=== PATIENT | female | born 1985 | race Caucasian/White ===

== ENCOUNTER 2018-02-16 14:00 | Inpatient (IN) | payer BC ==
[2018-02-16] VITALS (9 sets, daily range): BP systolic 108–129; BP diastolic 50–76
[~2018-02-16] VITALS: Ht 157.5 cm; Wt 95.7 kg
--- NOTE | ~2018-02-16 | CON ---
[place], [place] REPORT OF CONSULTATION [id number] UN[facility] #: [id number] ROOM: 401 DOCTOR: KURTIS TOMAS MD BIRTHDATE: [birth year] DOS: 02/16/2018 GASTROENDOSCOPIC REPORT HISTORY OF PRESENT ILLNESS: A 32-year-old patient who presented to the Emergency Room with chief complaint of abdominal pain this morning and more severe than usual, radiation of pain to the back associated with nausea. She has not been eating anything since last night. I was called by the Emergency Room with her report of lipase up to [address] scan of the abdomen and pelvis, which is intrahepatic and extrahepatic biliary dilation with about 1 cm calcific stone in the distal common bile duct, which is most likely the cause of her gallstone pancreatitis. The patient has had cholecystectomy in the past. Her Main organs including spleen, liver, pancreas, adrenal glands and left kidney, all has been evaluated within normal limits. Urinary evaluation, possible UTI as well was with active urine suspected. Her white blood cell was 14,000, H and H of 14 and 43. Lactic acid baseline within normal limits. Comprehensive metabolic panel, electrolyte balanced, GFR greater than 60. LFTs, bilirubin of 2.1, GOT and GPT of 360 and 390 respectively. Alkaline phosphatase 340. PAST MEDICAL HISTORY: Essentially unremarkable. PAST SURGICAL HISTORY: Cholecystectomy in the past, laparoscopically. ALLERGIES: No known medication. SOCIAL HISTORY: Nonsmoker, nonalcohol consumer. MEDICATIONS: Medication at home is none. FAMILY HISTORY: Noncontributory. REVIEW OF SYSTEMS: HEENT: Denies double vision, blurred vision. RESPIRATORY: Denies acute shortness of breath. CARDIOVASCULAR: Denies chest pain. DIGESTIVE SYSTEM: Nausea, abdominal pain, radiation of pain to the back. PHYSICAL EXAMINATION: VITAL SIGNS: Stable. HEENT: Head normocephalic, nontraumatic. Mouth and buccal mucosa benign. NECK: Supple, no thyromegaly, no cervical lymphadenopathy. CHEST: Symmetric anatomy, equal expansion. No wheeze, no rhonchi. HEART: Normal sinus rhythm, no gallop, no murmur. ABDOMEN: Soft and tender, obese. Bowel sounds present. EXTREMITIES: No cyanosis, no pedal edema. NEUROLOGIC: Alert, oriented to time, place, person. Sensory, motor intact. Cranial nerves 2-12 intact. IMPRESSION: Gallstone pancreatitis, distal common duct, choledocholithiasis, [place], [place] REPORT OF CONSULTATION NAME: PRAFUL JOHNSON UNIT #: [id number] ROOM: 401 DOCTOR: KURTIS TOMAS MD BIRTHDATE: [birth year] abnormal liver functions tests secondary to above. PLAN AND DISCUSSION: Possibility of urinary tract infection is considered. Rocephin has been given. IV hydration has been given. We are going to proceed with ERCP to see if we can remove the culprit from distal common duct. Case has been discussed. Risks has been discussed with the patient. KURTIS TOMAS MD CM:CONSTR:REPORT OF CONSULTATION 192 02/17/18 0738 interface
--- NOTE | ~2018-02-16 | O ---
[place], [place] OPERATIVE NOTE NAME: PRAFUL JOHNSON UNIT #: [id number] ROOM: 401 DOCTOR: KURTIS TOMAS MD BIRTHDATE: [birth year] DOS: 02/16/2018 GASTROENDOSCOPIC REPORT HISTORY OF PRESENT ILLNESS: The patient has presented with gallstone pancreatitis. CT scan with distal common duct stone obstructing as etiology for pancreatitis and abnormal LFTs. Consultation has been dictated. PAST MEDICAL HISTORY: Essentially unremarkable. PAST SURGICAL HISTORY: Status post cholecystectomy years ago. PROCEDURE: Today's procedure part of investigation and therapy is ERCP plus papillotomy plus balloon sweep of common bile duct stone plus common duct stent. PREMEDICATION: Propofol. SCOPE: Olympus side-viewing duodenoscope. REPORT: After putting the patient in left lateral position and application of lubricant to the scope, the scope was introduced. Thereafter, under direct visualization, advanced through the length of esophagus without difficulty into gastric pouch. Residual food debris from her stomach was suctioned out. Duodenum was intubated. Ampulla of Vater was identified. Selective cannulization of ampulla was undertaken. Hepatic radicles opacified with infusion of dye. Papillotomy was done at 1 o'clock position, extended to size expected to be 1 cm plus, balloon was introduced into the common duct, size 12. Multiple sweeps done, first sweep extracted the stone from the common duct to the lumen of duodenum. Multiple sweeps thereafter was performed. Debris removed. Common duct stent size 10 x 5 deployed, photographed, radiologically documented in correct position. The patient extubated after air was suctioned out, tolerated the procedure well. IMPRESSION: Endoscopic retrograde cholangiopancreatography, papillotomy, balloon sweep, extraction of common duct stone, and placement of common bile duct stent size 10 x 5. PLAN AND DISCUSSION: Continue with IV hydration. Follow up with LFTs and lipase tomorrow, which I am expecting to be successfully improving. [place], [place] OPERATIVE NOTE NAME: PRAFUL JOHNSON UNIT #: [id number] ROOM: 401 DOCTOR: KURTIS TOMAS MD BIRTHDATE: [birth year] KURTIS TOMAS MD CM:OPRECORD:OPERATIVE NOTE 27 [id number] KURTIS TOMAS MD 02/16/18 2249 interface
[~2018-02-16 14:00] MED LIST: AUGMENTIN 875 M1 TA1 PO; PREDNISONE10 MG PO
[2018-02-16 14:39] LABS: BASO # 0.1 10*3/uL (0.0-0.1); BASO % 0.5 % (0.0-1.0); EOS # 0.1 10*3/uL (0.0-0.4); HEMATOCRIT 43.5 % (37.0-47.0); HEMOGLOBIN 14.7 g/dl (12.0-16.0); LYMPH # 1.3 10*3/uL (1.3-4.4); LYMPH % 8.5 % (27.0-41.0); MEAN CELL VOLUME 87.5 fl (81.0-99.0); MEAN CORPUSCULAR HGB 29.6 pg (27.0-31.0); MEAN CORPUSCULAR HGB CONC 33.8 g/dl (33.0-37.0); MEAN PLATELET VOLUME 12.4 fl (9.6-12.3); MONO # 1.2 10*3/uL (0.1-1.0); MONO % 8.1 % (3.0-9.0); NEUT % 81.5 % (47.0-73.0); PLATELET COUNT AUTOMATED 260 10*3/uL (130-400); RED BLOOD COUNT 4.97 10*6/uL (4.10-5.10); RED CELL DISTRI WIDTH 12.4 % (0-14.5); WHITE BLOOD COUNT 14.7 10*3/uL (4.8-10.8)
[2018-02-16 14:53] LABS: ALBUMIN 4.4 gm/dl (3.1-4.5); ALKALINE PHOSPHATASE 347 U/L (45-117); BUN 15 mg/dl (7-24); CHLORIDE 101 mmol/L (98-107); CREATININE 0.78 mg/dL (0.55-1.02); POTASSIUM 3.5 mmol/L (3.5-5.1); SGOT/AST 362 IU/L (3-35); SGPT/ALT 392 U/L (12-78); SODIUM 137 mmol/L (136-145); TOTAL PROTEIN 8.6 gm/dL (6.4-8.2)
[2018-02-16 15:04] LABS: BILIRUBIN 3+ (NEGATIVE); BLOOD 3+ (NEGATIVE); CLARITY CLEAR (CLEAR); COLOR RED (YELLOW); GLUCOSE TRACE (NEGATIVE); KETONE TRACE (NEGATIVE); LEUKO ESTERASE 1+ (NEGATIVE); NITRITE POSITIVE (NEGATIVE); SPECIFIC GRAVITY 1.025 (1.005-1.030); UROBILINOGEN >= 8.0 E.U./dl (0.2-1.0)
[2018-02-16 15:51] LABS: RBC TNTC rbc/hpf (0-2)
[2018-02-17] VITALS: BP 114/63
[2018-02-17 06:36] LABS: INTERNATIONAL NORM RATIO 1.1 (2.0-3.5)
[2018-02-17 06:39] LABS: BASO % 0.2 % (0.0-1.0); EOS # 0.1 10*3/uL (0.0-0.4); EOS % 0.6 % (1.0-4.0); HEMATOCRIT 39.2 % (37.0-47.0); HEMOGLOBIN 12.8 g/dl (12.0-16.0); LYMPH # 1.1 10*3/uL (1.3-4.4); LYMPH % 8.9 % (27.0-41.0); MEAN CELL VOLUME 90.5 fl (81.0-99.0); MEAN CORPUSCULAR HGB 29.6 pg (27.0-31.0); MEAN CORPUSCULAR HGB CONC 32.7 g/dl (33.0-37.0); MONO # 1.3 10*3/uL (0.1-1.0); MONO % 10.2 % (3.0-9.0); NEUT % 79.7 % (47.0-73.0); PLATELET COUNT AUTOMATED 217 10*3/uL (130-400); RED BLOOD COUNT 4.33 10*6/uL (4.10-5.10); RED CELL DISTRI WIDTH 12.7 % (0-14.5); WHITE BLOOD COUNT 12.5 10*3/uL (4.8-10.8)
[2018-02-17 06:43] LABS: ALBUMIN 3.2 gm/dl (3.1-4.5); BILIRUBIN, DIRECT 3.4 mg/dL (0.0-0.2); BUN 9 mg/dl (7-24); CHLORIDE 109 mmol/L (98-107); HDL CHOLESTEROL 49 mg/dl (40-60); LIPASE 177 U/L (73-393); PHOSPHOROUS 2.4 mg/dL (2.5-4.9); POTASSIUM 3.6 mmol/L (3.5-5.1); SGPT/ALT 267 U/L (12-78); SODIUM 142 mmol/L (136-145); TRIGLYCERIDES 40 mg/dl (<150); VLDL CHOLESTEROL 8 mg/dL (6-40)
[2018-02-17 06:51] LABS: ALKALINE PHOSPHATASE 323 U/L (45-117); CHOLESTEROL 95 mg/dL (<200); LDL CHOLESTEROL 38 mg/dL (9-159); SGOT/AST 134 IU/L (3-35); THYROID STIM HORMONE (HS) 0.706 uIU/ml (0.358-4.75); TOTAL PROTEIN 6.7 gm/dL (6.4-8.2)
[2018-02-17 08:00] VITALS: BP 114/64
[2018-02-17 08:54] LABS: VITAMIN D, 25-HYDROXY 16.4 ng/mL (30-100)
[2018-02-17 12:00] VITALS: BP 116/67
[2018-02-17] MEDS ORDERED: VITAMIN D-32000 UNI1 PO (13:22)
== END 2018-02-17 14:30 | disposition home or self-care (01) | DRG 444 ==
LOC: ED 14:00 → EDHOLD 18:20 → 4E 18:20
PROVIDERS: Internal Medicine Nephrology; Nurse Practitioner
PROC: 0F798DZ Dilation of Common Bile Duct with Intraluminal Device, Via Natural or Artificial Opening Endoscopic (ICD-10-PCS; principal; 2018-02-16)
PROC: 0FC98ZZ Extirpation of Matter from Common Bile Duct, Via Natural or Artificial Opening Endoscopic (ICD-10-PCS; principal; 2018-02-16)
DX: K80.50 Calculus of bile duct without cholangitis or cholecystitis without obstruction (principal); K85.10 Biliary acute pancreatitis without necrosis or infection; N30.01 Acute cystitis with hematuria; D72.829 Elevated white blood cell count, unspecified; D72.810 Lymphocytopenia; R73.9 Hyperglycemia, unspecified; R74.0 Nonspecific elevation of levels of transaminase and lactic acid dehydrogenase [LDH]; E66.09 Other obesity due to excess calories; Z68.38 Body mass index [BMI] 38.0-38.9, adult; Z79.899 Other long term (current) drug therapy; Z90.49 Acquired absence of other specified parts of digestive tract

== ENCOUNTER → 2018-02-24 | Outpatient (CLI) | payer BC ==
[~2018-02-24] MED LIST changes: +VITAMIN D-32000 UNI1 PO
[2018-02-24 11:30] LABS: ALBUMIN 3.9 gm/dl (3.1-4.5); ALKALINE PHOSPHATASE 257 U/L (45-117); BUN 13 mg/dl (7-24); CHLORIDE 102 mmol/L (98-107); CREATININE 0.69 mg/dL (0.55-1.02); LIPASE 162 U/L (73-393); PHOSPHOROUS 2.8 mg/dL (2.5-4.9); POTASSIUM 3.5 mmol/L (3.5-5.1); SGOT/AST 48 IU/L (3-35); SGPT/ALT 135 U/L (12-78); SODIUM 138 mmol/L (136-145); TOTAL PROTEIN 8.5 gm/dL (6.4-8.2)
== END | disposition home or self-care (01) ==
LOC: RESCLI 01:53
PROVIDERS: Student in an Organized Health Care Education/Training Program
DX: Z12.4 Encounter for screening for malignant neoplasm of cervix (principal); K85.10 Biliary acute pancreatitis without necrosis or infection; K80.50 Calculus of bile duct without cholangitis or cholecystitis without obstruction; E55.9 Vitamin D deficiency, unspecified; E66.09 Other obesity due to excess calories; Z68.35 Body mass index [BMI] 35.0-35.9, adult; Z90.49 Acquired absence of other specified parts of digestive tract

== ENCOUNTER → 2018-12-16 | Day surgery (SDC) | payer BC ==
[~2018-12-16] VITALS: Ht 157.4 cm; Wt 95.3 kg
[~2018-12-16] MED LIST changes: +NO HOME MEDICATION
--- NOTE | ~2018-12-16 | O ---
[place], [place] OPERATIVE NOTE NAME: PRAFUL JOHNSON UNIT #: [id number] ROOM: DOCTOR: KURTIS TOMAS MD BIRTHDATE: [birth year] DOS: 12/16/2018 HISTORY OF PRESENT ILLNESS: The 33-year-old patient who has presented with chief complaint of right upper quadrant pain status post previous common duct stent, status post choledocholithiasis extractions. Retained common duct stent. PROCEDURE: Today's procedure part of investigation is ERCP and balloon sweep of common duct. PREMEDICATION: Propofol. SCOPE: [employer] for side-viewing duodenoscope. REPORT: After putting the patient in left lateral position and application of lubricant to the scope, the scope was introduced. Thereafter, under direct visualization, advanced through the length of esophagus without difficulty into gastric pouch into duodenal bulb. Ampulla of Vater was defined, which was devoid of presence of common duct stent. This most likely had either been automatically expelled and dropped and mobilized into the stool or had migrated into the hepatic radicle. At this stage, after confirming common bile duct position through the ERCP, a guidewire was introduced into common duct and dye was injected. The right hepatic radicles first two was noticed and I had difficulty seeing left hepatic radicle. A balloon size 9-12 was introduced into distal common bile duct and choking the flow of dye and infusing dye, hepatic radicles filled up and the patient was repositioned and radicles appeared to be benign. Balloon sweep of common duct was also done, no sludge or pathology identified. Papilla is widely open due to the previous papillotomy. PLAN AND DISCUSSION: Follow up p.r.n. as outpatient in case there is pain or distress otherwise. FINAL DIAGNOSES: Migrated common bile duct stent. Otherwise, status post ERCP, balloon sweep of common duct. Thank you very much indeed for your kind referral. [place], [place] OPERATIVE NOTE NAME: PRAFUL JOHNSON UNIT #: [id number] ROOM: DOCTOR: KURTIS TOMAS MD BIRTHDATE: [birth year] KURTIS TOMAS MD CM:OPRECORD:OPERATIVE NOTE 1223 [id number] KURTIS TOMAS MD 12/16/18 1304 interface
[2018-12-16 10:30] VITALS: BP 100/52
[2018-12-16 12:17] VITALS: BP 111/67
[2018-12-16 12:32] VITALS: BP 118/76
[2018-12-16 12:47] VITALS: BP 115/72
== END | disposition home or self-care (01) ==
LOC: SDC 12-15 13:15
DX: T85.520A Displacement of bile duct prosthesis, initial encounter (principal); Y83.8 Other surgical procedures as the cause of abnormal reaction of the patient, or of later complication, without mention of misadventure at the time of the procedure; Y92.89 Other specified places as the place of occurrence of the external cause; E66.9 Obesity, unspecified; Z98.890 Other specified postprocedural states; Z68.38 Body mass index [BMI] 38.0-38.9, adult